=== PATIENT | male | born 1990 | race Caucasian/White ===

== ENCOUNTER 2018-08-27 03:39 | Emergency (ER) | payer MEDICAID ==
[~2018-08-27] VITALS: Ht 177.8 cm; Wt 109.8 kg
[2018-08-27 04:37] VITALS: BP 158/88
== END 2018-08-27 04:37 | disposition home or self-care (01) ==
LOC: ED 03:39
DX: M43.6 Torticollis (principal); M25.511 Pain in right shoulder; F17.200 Nicotine dependence, unspecified, uncomplicated; I10 Essential (primary) hypertension
CPT/HCPCS: 99406

== ENCOUNTER 2019-02-25 11:15 | Emergency (ER) | payer OTHER ==
[~2019-02-25] VITALS: Ht 180.3 cm; Wt 105.7 kg
[2019-02-25 11:20] VITALS: Ht 180.3 cm; Wt 105.7 kg
[2019-02-25 12:15] LABS: BASOPHIL % 0.3 % (0-2); PLATELET COUNT 397 x10^3mcL (130-400); RED CELL DISTRIBUTION WIDTH 12.5 % (11.5-14.5)
[2019-02-25 12:17] LABS: CALCIUM 9.7 mg/dL (8.5-10.1); CARBON DIOXIDE 28.5 mmol/L (21-32); CHLORIDE SERUM 102 mmol/L (98-107); GFR1 > 60 mL/min; GLUCOSE SERUM 97 mg/dL (74-106); POTASSIUM SERUM 4.2 mmol/L (3.5-5.1); SODIUM SERUM 142 mmol/L (136-145)
[2019-02-25 12:57] VITALS: BP 139/79
== END 2019-02-25 12:57 | disposition home or self-care (01) ==
LOC: ED 11:15
PROVIDERS: Emergency Medicine
DX: R04.0 Epistaxis (principal); R53.1 Weakness; I10 Essential (primary) hypertension
CPT/HCPCS: 36415